=== PATIENT | female | born 1970 | race Hispanic/Latino ===

== ENCOUNTER 2018-11-09 07:30 | Outpatient (CLI) | payer BC ==
--- NOTE | 2018-11-09 09:01 | MRI ---
FBrain MRI with and without contrast: 11/09/2018 COMPARISON: None HISTORY: Abnormal sense of smell, parosmia Technique: Multiplanar multisequence MR imaging of the brain obtained with and without contrast FINDINGS: Regional bone marrow signal intensity is within normal limits. The diffusion weighted imaging demonstrates no evidence for acute infarction. There is no midline shift or mass effect. No ventricular enlargement. Arterial flow voids at the axial level of the skull base appear grossly unremarkable on the T2-weight ed imaging. No significant paranasal sinus opacification noted. The whole brain postcontrast imaging demonstrates no abnormal enhancement within the brain parenchyma . Thin section postcontrast fat-saturated imaging centered along the cribriform plate and including t he paranasal sinuses is unremarkable. No mass lesion is seen. IMPRESSION: Unremarkable contrast enhanced brain MRI.
[2018-11-09] MEDS ORDERED: Gadobenate Dimeglumine 529 MG/1 ML (20ML VIAL) ONE (15:11)
== END 2018-11-09 07:31 | disposition home or self-care (01) ==
LOC: BICMRI 07:30
PROVIDERS: ATTEND Otolaryngology Otolaryngic Allergy
DX: R43.1 Parosmia (principal)
CPT/HCPCS: 70553; 82565; A9577

== ENCOUNTER 2020-04-08 12:17 | Outpatient (CLI) | payer BC ==
--- NOTE | 2020-04-08 12:41 | RAD ---
EXAM: Chest 2 views: HISTORY: Dyspnea COMPARISON: None. FINDINGS: There is a normal-sized cardiomediastinal silhouette. There is no evidence of consolidation, mass, or pleural effusion. No acute osseous abnormality. IMPRESSION: No evidence of acute cardiopulmonary disease
== END 2020-04-08 12:18 | disposition home or self-care (01) ==
LOC: BICRAD 12:17
PROVIDERS: ATTEND Internal Medicine Pulmonary Disease
DX: R06.00 Dyspnea, unspecified (principal)
CPT/HCPCS: 71046

== ENCOUNTER 2023-05-11 09:36 | Outpatient (CLI) | payer BC | END 2023-05-11 09:37 | disposition home or self-care (01) | LOC: BICMAMMO 09:36 | PROVIDERS: ATTEND Internal Medicine | DX: Z12.31 Encounter for screening mammogram for malignant neoplasm of breast (principal); Z91.89 Other specified personal risk factors, not elsewhere classified | CPT/HCPCS: 77063; 77067 ==

== ENCOUNTER 2024-05-13 09:21 | Outpatient (CLI) | payer BC | END 2024-05-13 09:22 | disposition home or self-care (01) | LOC: BICMAMMO 09:21 | PROVIDERS: ATTEND Internal Medicine | DX: Z12.31 Encounter for screening mammogram for malignant neoplasm of breast (principal); Z91.89 Other specified personal risk factors, not elsewhere classified | CPT/HCPCS: 77063; 77067 ==